=== PATIENT | male | born 1965 | race Caucasian/White ===

== ENCOUNTER 2018-07-10 06:58 | Day surgery (SDC) | payer OTHER, SELFPAY ==
[2018-07-10 07:25] VITALS: BP 140/94; PULSE 61; RESP 16; TEMP 36.5; O2SAT 100; BMI 23.3
--- NOTE | 2018-07-10 07:53 | HP.PCM_ITS ---
History of Present Illness Date of Admission: 07/10/18 The patient is a 53 year old M presents for screening for colon cancer. Patient states he has bowel movements daily, denies any blood, denies any family history of colon cancer, denies, pain/nausea/vomiting/reflux. Patient has never had a colonoscopy previously Past Medical/Surgical History - Planned Operation Planned Operative Procedure/s: OPEN ACCESS CSCOPE Date of Operative Procedure: 07/10/18 Permit Signed: No S.O.S: No Is This Patient Having a Total Joint: No - Previous Hospitalizations/Surgeries HX Hospitalizations: No HX of Surgeries: TONSILLECTOMY Any Problems With Anesthesia: No You/Your Family Experience Fever (Hyperthermia) With Anes: No Cholinesterase deficiency: No - Cardiovascular Hx Chest Pain within Last 2 months: No Hx of Irregular Heartbeat and/or Afib: No Hx Heart Attack: No Hx Congestive Heart Failure: No Hx Rheumatic Fever: No Hx Hypertension: No Hx Internal Defibrillator: No Hx Pacemaker: No Hx Cardiac Catheterization: No Hx Cardiac Surgery/Stents/Etc.: No Hx Stress Test: No HX Edema: No Hx Pain in Legs when Walking/Leg Cramps: Yes - CRAMPS PRN - Respiratory Chronic Cough: No HX of Shortness of Breath: No Hoarseness: No Hx Chronic Obstructive Pulmonary Disease (COPD): No Hx Asthma: No Hx Emphysema: No Hx Sleep Apnea: No Hx Oxygen Use at Home: No Hx Respiratory Tract Infection/Cold (presently): No Do You Snore Loudly (louder than talking or can be heard): Yes Do You Often Feel Tired/ Fatigued/ Sleepy Dring Daytime?: No Has Anyone Observed You Stop Breathing During Sleep?: No Result (for STOP score): Negative Hx Smoking: No Smoking Status: Never smoker - Gastrointestinal Hx Gastroesophageal Reflux: No Hx Gastrointestinal Disorders: No Hx Gastrointestinal Bleed: No Hx Ulcer: No Hx Hiatal Hernia: No Difficulty Chewing/Swallowing: No Recent Onset of Swallowing Problems: No Special diet followed at home: No Hx Unplanned Weight Loss of 20#: No HX Unplanned Weight Gain of 20#: No - Neurological Hx Seizures: No HX Syncope/Blackout Spells/Unconsciousness: No Hx CVA/Stroke: No Hx Transient Ischemic Attacks (TIA): No Hx Multiple Sclerosis: No Hx Parkinson's Disease: No Hx Head/Neck Injury: No Hx Headaches: No Hx Back Injury/Pain: Yes - PAIN AT TIMES Recent Onset of Speech Difficulty: No Restless Legs: No Does patient have nerve stimulator: No Patient instructed to have device shut off: No Rep notified?: No - Blood Disorder Hx Leukemia: No Bleeding Tendencies: No Hx Deep Vein Thrombosis: No Hx High Cholesterol: No Blood Transmitted Disease: No Hx Hepatitis: No Hx Cirrhosis: No Hx Anemia: No Hx Blood Disorders: No - Genitourinary Hx Renal Disease: No - Musculoskeletal Hx Arthritis: No Hx Rheumatoid Arthritis: No Hx Gout: No Recent Onset of an Orthopedic Problem: No - Endocrine Hx Diabetes: No Thyroid Disease: No Hx Steroid Therapy: No - Psycho/Social Hx Substance Use: No Hx Alcohol Use: No Hx Anxiety: No Hx Depression: No Mental Illness: No Hx Dementia: No - Miscellaneous Hx Cancer: No Recent Exposure to Contagious Disease: No Active MRSA: No Hx of C-Diff: No Any Loose Teeth: No Allergies cephalexin [From Keflex] Allergy (Verified 07/04/18 15:50) Hives ibuprofen [From Advil] Allergy (Verified 07/04/18 15:50) Swelling - Discharge Is Pt Admitted From a Shelter, or a Detention: No Who Could Help: FAMILY After D/C, Where Do you Plan to Go: Return Home - Physical Exam Vital Signs Temp Pulse Resp BP Pulse Ox 97.7 F L 61 16 140/94 H 100 07/10/18 07:25 07/10/18 07:25 07/10/18 07:25 07/10/18 07:25 07/10/18 07:25 Oxygen Delivery Method Room Air Weight: 172 lb 9.951 oz Body Mass Index (BMI) 23.3 Assessment/Plan 53-year-old male screening for colon cancer Surgery Risks - Colonoscopy I discussed with the patient the risks of the procedure: Yes Risks Include but are not Limited To: Risks include but are not limited to: Bleeding, perforation requiring further surgery, inability to complete colonoscopy requiring barium enema. Patient no further questions at this time
[2018-07-10 08:23] VITALS: BP 121/68; BP 140/95; PULSE 49; RESP 18; TEMP 36.3; O2SAT 98
--- NOTE | 2018-07-10 08:23 | OP.ENDO_ITS ---
07/10/2018 No Primary Care Physician Re : [facility] This procedure was performed on Tuesday, July 10, 2018. My impressions and recommendations are as follows: Impressions : - The entire examined colon is normal on direct and retroflexion views. - No specimens collected. Recommendations : - Discharge patient to home. - Resume regular diet. - Continue present medications. - Repeat colonoscopy in 10 years for screening purposes. My findings are described in the full procedure note, which is enclosed. If I can be of further assistance, please feel free to contact me at Doctor phone number(s): , Work: . Sincerely, MD Nilsa Eller MD 07/10/2018 8:22:38 AM This report has been signed electronically.
[2018-07-10 08:25] VITALS: BP 113/77; BP 140/95; PULSE 47; RESP 18; O2SAT 98
[2018-07-10 08:30] VITALS: BP 112/78; BP 140/95; PULSE 53; RESP 18; O2SAT 99
[2018-07-10 08:35] VITALS: BP 121/88; BP 140/95; PULSE 51; RESP 18; TEMP 36.4; O2SAT 97
[2018-07-10 09:32] VITALS: BP 140/95
== END 2018-07-10 09:25 | disposition home or self-care (01) ==
LOC: EN 06:59 → AC 07:01
PROVIDERS: Referring Provider Surgery; Visit Provider Surgery
PROC: 0DJD8ZZ Inspection of Lower Intestinal Tract, Via Natural or Artificial Opening Endoscopic (ICD-10-PCS; CPT 45378; principal; 2018-07-10 07:55)
DX: Z12.11 Encounter for screening for malignant neoplasm of colon (principal)
CPT/HCPCS: 45378; J7120

== ENCOUNTER → 2022-06-25 | Outpatient (CLI) | payer OTHER, SELFPAY ==
--- NOTE | 2022-06-25 12:18 | EKG12_ITS ---
Test Reason : PREOP Blood Pressure : / mmHG Vent. Rate : 050 BPM Atrial Rate : 050 BPM P-R Int : 158 ms QRS Dur : 080 ms QT Int : 438 ms P-R-T Axes : 063 020 037 degrees QTc Int : 399 ms Sinus bradycardia Otherwise normal ECG No previous ECGs available Confirmed by LAUREL KAPADIA, MAGNOLIA ([id number]), acquisition editor JO-ANN SMART ([id number] on 06/28/2022 6:47:41 AM Referred By: HELENA Confirmed By:MAGNOLIA BARRAGAN MD
[2022-06-25 13:35] LABS: Hematocrit 44.6 % (40-54); Hemoglobin 15.5 g/dL (13.0-16.5); Mean Corp Hgb Conc 34.8 g/dL (32-36); Mean Corpuscular Hgb 31.8 pg (27.0-32.0); Mean Corpuscular Volume 91.4 fL (80-94); Mean Platelet Vol. 9.7 fl (6.2-12.0); Platelet Count 214 K/mm3 (150-450); RBC Distribution Width CV 11.3 % (11.6-14.6); RBC Distribution Width SD 38.1 fl (35.1-43.9); Red Blood Count 4.88 M/mm3 (4.6-6.2); White Blood Count 6.5 K/mm3 (4.4-11.0)
[2022-06-25 14:02] LABS: BUN 19 mg/dL (7-18); BUN/Creat Ratio 17.9 RATIO (10-20); Calcium,Total 9.4 mg/dL (8.5-10.1); Chloride 106 mmol/L (98-107); Creatinine, Serum 1.06 mg/dL (0.70-1.30); EST Glomerular Filtration Rate 77 mL/min (>60); Est Glom Filt Rate - Afr Amer 93 mL/min (>60); Glucose 105 mg/dL (74-106); Potassium 4.5 mmol/L (3.5-5.1); Sodium Level 141 mmol/L (136-145)
[2022-06-25 14:03] LABS: Anion Gap 5 (5-15)
== END | disposition home or self-care (01) ==
LOC: PSN 12:12
PROVIDERS: Visit Provider Otolaryngology
DX: Z01.818 Encounter for other preprocedural examination (principal); Z01.812 Encounter for preprocedural laboratory examination
CPT/HCPCS: 36415; 80048; 85027; 93005